=== PATIENT | female | born 1955 | race Caucasian/White ===

== ENCOUNTER → 2016-12-24 | Outpatient (CLI) | payer BC ==
--- NOTE | 2017-01-04 13:12 | RADIOLOGY REPORT PS360 ---
DIG MAMM-SCREEN UNI-RT W/CAD CAD Screening ORDERING PHYSICIAN : Kiel Ramires MD PATIENT AGE: 61 years GENDER: Female COMPARISON: Previous mammograms: July 2015, 2014, June 2013, February 2012 right mammogram study. INDICATION: Routine screening left mastectomy for breast cancer.. Previous lumpectomy inferior outer quadrant right breast. No hormones. No new complaints. 61. Noncontributory family history. TECHNIQUE: Standard CC and MLO images were obtained right breast.. In addition additional axillary & & nipple profile cc view; & added MLO views included inferior breast performed. R2 CAD reviewed. FINDINGS: Moderate breast density.Architectural distortion in density at lumpectomy site is unchanged. RIGHT BREAST: No significant new findings at right breast appears areas of minimal density on one view dissipates on another with overall findings similar to studies dating back to at least 2013. Scattered small benign calcifications. No significant new areas concern. IMPRESSION: No significant new findings. Stable appearance to the lumpectomy site right breast Bilateral follow-up in one year recommended BI-RADS CATEGORY: 2_Benign RECOMMENDED FOLLOWUP: 12M 12 MONTH FOLLOW-UP (A letter has been sent to the patient regarding results of the study.)
== END ==
LOC: RAD 12-09 16:30
DX: Z12.31 Encounter for screening mammogram for malignant neoplasm of breast (principal)
CPT/HCPCS: G0202-RT-52